=== PATIENT | male | born 1975 | race Caucasian/White ===

== ENCOUNTER 2017-03-31 14:26 | Emergency (ER) | payer OTHER ==
[~2017-03-31] VITALS: Ht 175.3 cm; Wt 79.0 kg
[~2017-03-31 14:26] MED LIST: FER325 PO; IBUP-1542 PO; METH10TA2 PO; ONDA4TAB35 PO; OXYC-283 PO; TRAM50TA2 PO
[2017-03-31 15:02] VITALS: Ht 175.3 cm; Wt 79.0 kg
[2017-03-31] MEDS ORDERED: CLINDAMYCIN 300 MG INJ IM ONE (15:30)
[2017-03-31] MEDS ORDERED: DOXY100T20 PO (15:58)
[2017-03-31] MEDS ORDERED: IBUP800T25 PO (15:58)
[2017-03-31] MEDS ORDERED: LIDOCAINE 2% (MDV) 20 ML INJ INJ ONE (16:00)
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
== END 2017-03-31 16:24 | disposition home or self-care (01) ==
LOC: FTE 14:26
DX: L02.414 Cutaneous abscess of left upper limb (principal); F17.210 Nicotine dependence, cigarettes, uncomplicated
CPT/HCPCS: 10060; Z7502; Z7610

== ENCOUNTER 2017-05-26 15:13 | Emergency (ER) | payer OTHER ==
[~2017-05-26] VITALS: Ht 167.6 cm; Wt 79.5 kg
[~2017-05-26 15:13] MED LIST changes: +DOXY100T20 PO; +IBUP800T25 PO
[2017-05-26 15:15] VITALS: Ht 167.6 cm; Wt 79.5 kg
[2017-05-26] MEDS ORDERED: LIDOCAINE 2% (MDV) 20 ML INJ INJ ONE (18:00)
[2017-05-26] MEDS ORDERED: IBUP-1542 PO (18:46)
[2017-05-26] MEDS ORDERED: SULF1TAB31 PO (18:46)
[2017-05-26] MEDS ORDERED: CEPH-443 PO (18:46)
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
== END 2017-05-26 18:55 | disposition home or self-care (01) ==
LOC: FTE 15:13
DX: L02.414 Cutaneous abscess of left upper limb (principal); F17.210 Nicotine dependence, cigarettes, uncomplicated
CPT/HCPCS: 10060; Z7502; Z7610

== ENCOUNTER 2017-06-06 13:03 | Emergency (ER) | payer OTHER ==
[~2017-06-06] VITALS: Ht 177.8 cm; Wt 80.5 kg
[~2017-06-06 13:03] MED LIST changes: +CEPH-443 PO; +SULF1TAB31 PO
[2017-06-06 13:07] VITALS: Ht 177.8 cm; Wt 80.5 kg
[2017-06-06] MEDS ORDERED: LIDOCAINE 2% (MDV) 20 ML INJ INJ ONE (14:30)
[2017-06-06] MEDS ORDERED: CLIN-73 PO (15:08)
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
== END 2017-06-06 15:56 | disposition home or self-care (01) ==
LOC: FTE 13:03
DX: L02.413 Cutaneous abscess of right upper limb (principal); F17.210 Nicotine dependence, cigarettes, uncomplicated
CPT/HCPCS: 10061; Z7502; Z7610

== ENCOUNTER 2017-11-08 21:01 | Emergency (ER) | END 2017-11-08 22:42 | disposition left against medical advice (07) ==

== ENCOUNTER 2017-11-11 23:57 | Emergency (ER) | END 2017-11-12 04:32 | disposition home or self-care (01) ==

== ENCOUNTER 2017-12-04 17:17 | Emergency (ER) | END 2017-12-04 18:54 | disposition home or self-care (01) ==

== ENCOUNTER 2018-02-09 11:50 | Emergency (ER) | END 2018-02-09 15:13 | disposition left against medical advice (07) ==

== ENCOUNTER 2018-02-09 15:00 | Emergency (ER) | END 2018-02-09 15:33 | disposition home or self-care (01) ==

== ENCOUNTER 2018-02-10 20:49 | Emergency (ER) | END 2018-02-10 23:50 | disposition left against medical advice (07) ==

== ENCOUNTER 2018-04-12 22:07 | Emergency (ER) | END 2018-04-13 02:35 | disposition left against medical advice (07) ==

== ENCOUNTER 2018-04-13 08:44 | Emergency (ER) | END 2018-04-13 09:50 | disposition home or self-care (01) ==

== ENCOUNTER 2018-04-16 09:25 | Emergency (ER) | END 2018-04-16 10:46 | disposition home or self-care (01) ==

== ENCOUNTER 2018-04-20 18:54 | Emergency (ER) | END 2018-04-20 21:26 | disposition home or self-care (01) ==

== ENCOUNTER 2018-05-19 14:27 | Emergency (ER) | END 2018-05-19 15:41 | disposition home or self-care (01) ==

== ENCOUNTER 2018-11-25 12:54 | Emergency (ER) | payer OTHER ==
[~2018-11-25] VITALS: Ht 172.7 cm; Wt 79.6 kg
[~2018-11-25 12:54] MED LIST changes: +ACYC400T2 PO; +ACYC5CRE7 TOP; +BACI28.34 TOP; +BEN25 PO; +CLIN300C10 PO; -IBUP800T25 PO; +IBUP800T48 PO; +NAPR-985 PO; +OXYC-279 PO
[2018-11-25 13:17] VITALS: Ht 172.7 cm; Wt 79.6 kg
[2018-11-25] MEDS ORDERED: LIDOCAINE 1% (MDV) 20 ML INJ SC ONE (17:00)
[2018-11-25] MEDS ORDERED: ACET500C5 PO (18:05)
[2018-11-25] MEDS ORDERED: CLIN300C10 PO (18:05)
[2018-11-25 18:39] VITALS: BP 131/82; PULSE 82; RESP 19
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
== END 2018-11-25 18:41 | disposition home or self-care (01) ==
LOC: FTE 12:54
DX: L02.413 Cutaneous abscess of right upper limb (principal); L02.414 Cutaneous abscess of left upper limb; F17.210 Nicotine dependence, cigarettes, uncomplicated
CPT/HCPCS: 10061; Z7502; Z7610

== ENCOUNTER 2019-02-27 17:35 | Emergency (ER) | payer OTHER ==
[~2019-02-27] VITALS: Ht 175.3 cm; Wt 75.8 kg
[~2019-02-27 17:35] MED LIST changes: +ACET500C5 PO
[2019-02-27 17:50] VITALS: Ht 175.3 cm; Wt 75.8 kg
[2019-02-27] MEDS ORDERED: OXYCODONE/ACETAMINOPHEN (5/325) TAB PO ONE (22:30)
[2019-02-27] MEDS ORDERED: IBUPROFEN 600 MG TAB PO ONE (22:30)
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
[2019-02-28] MEDS ORDERED: HYDR-4011 PO (00:22)
[2019-02-28] MEDS ORDERED: IBUP-1542 PO (00:22)
[2019-02-28 00:40] VITALS: BP 124/60; PULSE 80; RESP 17
== END 2019-02-28 00:43 | disposition home or self-care (01) ==
LOC: FTE 17:35
DX: S22.42XA Multiple fractures of ribs, left side, initial encounter for closed fracture (principal); S59.902A Unspecified injury of left elbow, initial encounter; V18.4XXA Pedal cycle driver injured in noncollision transport accident in traffic accident, initial encounter
CPT/HCPCS: 29105; 71046; 71100; 73080; 73090; 73110; Z7502; Z7610

== ENCOUNTER 2019-03-02 15:26 | Emergency (ER) | payer OTHER ==
[~2019-03-02] VITALS: Ht 175.3 cm; Wt 72.9 kg
[~2019-03-02 15:26] MED LIST changes: +HYDR-4011 PO
[2019-03-02 15:34] VITALS: Ht 175.3 cm; Wt 72.9 kg
[2019-03-02] MEDS ORDERED: TRIMETHOPRIM/SULFAMETHOX (DS) TAB PO ONE (17:00)
[2019-03-02] MEDS ORDERED: CEPHALEXIN 250 MG CAP PO ONE (17:30)
[2019-03-02] MEDS ORDERED: CEPH-443 PO (17:37)
[2019-03-02] MEDS ORDERED: SULF1TAB31 PO (17:37)
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
[2019-03-02 18:10] VITALS: BP 128/64; PULSE 78; RESP 16
== END 2019-03-02 18:12 | disposition home or self-care (01) ==
LOC: FTE 15:26
DX: L02.414 Cutaneous abscess of left upper limb (principal); F17.210 Nicotine dependence, cigarettes, uncomplicated
CPT/HCPCS: 10060; Z7502; Z7610